=== PATIENT | male | born 1970 | race Caucasian/White ===

== ENCOUNTER 2023-07-14 18:45 | Emergency (ER) | payer OTHER, SELFPAY ==
--- NOTE | ~2023-07-14 | US_ITS ---
EXAMINATION: US SCROTUM CLINICAL INFORMATION: Testicular pain and swelling. COMPARISON: None available. TECHNIQUE: A sonogram of the scrotum was performed assessing liang-scale appearance and color Doppler flow. Spectral Doppler analysis of the arterial and venous flow were performed in the testes bilaterally. FINDINGS: RIGHT: Right testicle measures 4.9 x 3.1 x 3.8 cm, volume 30.2 mL. No focal testicular parenchymal lesions are visualized. Spectral Doppler analysis of the arterial and venous flow is normal flow in the right testis. Right epididymal head is mildly enlarged and demonstrates increased vascularity. There is a small to moderate-sized septated right hydrocele. No right varicocele. LEFT: Left testicle measures 5.4 x 2.8 x 3.2 cm, volume 25 mL. No focal testicular parenchymal lesions are visualized. Spectral Doppler analysis of the arterial and venous flow is normal in the left testis. Left epididymal head is normal in size. No left hydrocele or varicocele is seen. Left epididymal Doppler flow is normal. US/US scrotum doppler IMPRESSION: The right epididymis appears mildly enlarged and is hyperemic compared with the left side. There is a small to moderate-sized septated right hydrocele. Findings likely represent right-sided epididymitis with reactive hydrocele. Findings were conveyed to Dr. Hand at 8:00 PM on 07/14/2023.
--- NOTE | ~2023-07-14 | US_ITS ---
EXAMINATION: US SCROTUM CLINICAL INFORMATION: Testicular pain and swelling. COMPARISON: None available. TECHNIQUE: A sonogram of the scrotum was performed assessing liang-scale appearance and color Doppler flow. Spectral Doppler analysis of the arterial and venous flow were performed in the testes bilaterally. FINDINGS: RIGHT: Right testicle measures 4.9 x 3.1 x 3.8 cm, volume 30.2 mL. No focal testicular parenchymal lesions are visualized. Spectral Doppler analysis of the arterial and venous flow is normal flow in the right testis. Right epididymal head is mildly enlarged and demonstrates increased vascularity. There is a small to moderate-sized septated right hydrocele. No right varicocele. LEFT: Left testicle measures 5.4 x 2.8 x 3.2 cm, volume 25 mL. No focal testicular parenchymal lesions are visualized. Spectral Doppler analysis of the arterial and venous flow is normal in the left testis. Left epididymal head is normal in size. No left hydrocele or varicocele is seen. Left epididymal Doppler flow is normal. US/US scrotum IMPRESSION: The right epididymis appears mildly enlarged and is hyperemic compared with the left side. There is a small to moderate-sized septated right hydrocele. Findings likely represent right-sided epididymitis with reactive hydrocele. Findings were conveyed to Dr. Hand at 8:00 PM on 07/14/2023.
[2023-07-14 18:53] VITALS: BP 104/60; PULSE 84; RESP 16; TEMP 36.5; O2SAT 94; BMI 30.1
--- NOTE | 2023-07-14 18:53 | ED.GENADULT ---
HPI - General Adult General Chief complaint: Urogenital-Male Stated complaint: male issue Time Seen by Provider: 07/14/23 23:21 Related Data Previous Rx's Medication Instructions Recorded doxycycline hyclate 100 mg capsule 100 mg PO BID cough 14 days #28 07/14/23 caps Allergies Allergy/AdvReac Type Severity Reaction Status Date / Time No Known Allergies Allergy Unverified 03/23/20 19:45 [No Known Allergies*] [facility] Social History Social History Advance Directives: No Advance Directives Information Provided: No Physical Exam ED Vital Signs: Vital Signs - 24 hr 07/14/23 18:53 07/14/23 23:23 07/14/23 23:45 Temperature 97.7 F 98.2 F Pulse Rate 84 86 Respiratory Rate 16 16 16 Blood Pressure 104/60 112/64 Pulse Oximetry 94 95 Oxygen Delivery Method Room Air Room Air BMI result Body Mass Index 30.1 Course Course Course Narrative: RME performed by Rin Hand PA-C. Patient is a 52 year old assigned male at presenting to the emergency department with lower abdominal pain and testicular pain. Patient also recently diagnosed with pneumonia? Detailed physical exam and review of systems are deferred to the director of consumer affairs. Labs, imaging, and swabs ordered. Patient placed back in the waiting room pending room availability and results. Patient seen and dispositioned by Dr. Barbosa. Please refer to his note from this date. Medications Administered Discontinued Medications Generic Name Dose Route Start Last Admin Trade Name Freq PRN Reason Stop Dose Admin Ceftriaxone Sodium 500 mg 07/14/23 23:39 07/15/23 00:22 Ceftriaxone Sodium 500 Mg Vial IM 07/14/23 23:40 500 mg ONCE ONE Administration Doxycycline Monohydrate 100 mg 07/14/23 23:37 07/15/23 00:22 Doxycycline Monohydrate 100 Mg Capsule PO 07/14/23 23:38 100 mg ONCE ONE Administration Medical Decision Making Lab Data 07/14/23 19:57 07/14/23 19:57 Labs: Lab Results 07/14/23 07/15/23 Range/Units 19:57 00:11 WBC 9.4 (4.8-10.8) X10*3/uL RBC 4.08 L (4.60-5.80) X10*6/uL Hgb 12.6 L (14.0-18.0) g/dl Hct 35.7 L (42.0-52.0) % MCV 87.5 (80.0-98.0) fL MCH 30.9 (27.0-33.0) pg MCHC 35.3 (31.0-36.0) g/dl RDW 12.6 (11.0-16.0) % Plt Count 131 L (160-400) X10*3/uL MPV 12.3 (9.4-12.4) fL Immature Gran % (Auto) 0.2 (0.0-0.4) % Neut % (Auto) 66.8 (45-73) % Lymph % (Auto) 22.9 (20-40) % [place] % (Auto) 7.8 (2-11) % Eos % (Auto) 1.8 (0-4) % Baso % (Auto) 0.5 (0-2) % Lymph # (Auto) 2.2 (1.2-4.9) X10*3/uL [place] # (Auto) 0.7 (0.1-1.2) X10*3/uL Eos # (Auto) 0.2 (0.0-0.4) X10*3/uL Baso # (Auto) 0.1 (0.0-0.2) X10*3/uL Abs Immat Gran (auto) 0.02 (0.00-0.03) X10*3/uL Absolute Neuts (auto) 6.3 (2.0-8.3) x10*3/uL Absolute Nucleated RBC 0.000 (0.0-0.012) X10*3/uL Nucleated RBC % (auto) 0.0 (0.0-0.2) /100WBC Sodium 133 L (135-145) mmol/L Potassium 3.5 (3.3-5.1) mmol/L Chloride 103 (96-108) mmol/L Carbon Dioxide 22 (22-29) mmol/L Anion Gap 12 (12-20) BUN 8 L (9-16) mg/dL Creatinine 0.99 (0.5-1.4) mg/dL Estim Creat Clear Calc 107.7 Estimated GFR > 60 Random Glucose 114 (60-115) mg/dL Calcium 9.0 (8.4-10.2) mg/dL Magnesium 1.9 (1.6-2.6) mg/dL Total Bilirubin 1.4 H (0.0-1.0) mg/dL AST 11 (5-37) U/L ALT 10 (0-40) U/L Alkaline Phosphatase 119 H (39-117) U/L Total Protein 7.0 (6.5-8.0) g/dL Albumin 4.1 (3.5-5.0) g/dL Urine Color Yellow Urine Appearance Turbid Urine pH 5.5 (5.0-9.0) Ur Specific [place] 1.015 (1.005-1.025) Urine Protein 100 (2+) H (Neg-Trace) mg/dL Urine Glucose (UA) Negative (Negative) mg/dL Urine Ketones Negative (Negative) mg/dL Urine Blood Large (3+) H (Negative) Urine Nitrite Negative (Negative) Ur Leukocyte Esterase Large (3+) H (Negative) Urine RBC >20 H (0-2) /HPF Urine WBC >50 H (0-5) /HPF Ur Squamous Epith Cells 0-2 (0-2) /HPF Urine Bacteria 3+ (None Seen) Hyaline Casts 3-5 (0-2) /LPF Chlam trachomat DNA PCR NOT DETECTED (Not Detect.) Influenza Type A (PCR) NEGATIVE (Negative) Influenza Type B (PCR) NEGATIVE (Negative) N.gonorrhoeae DNA (PCR) NOT DETECTED (Not Detect.) RSV RNA Qual (PCR) NEGATIVE (Negative) SARS-CoV-2 RNA (RT-PCR) NEGATIVE (Negative) Discharge Plan Discharge Clinical Impression: Epididymitis Patient Disposition: Home, Self-Care Instructions: Epididymitis (ED) Prescriptions: New doxycycline hyclate 100 mg capsule 100 mg PO BID 14 Days Qty: 28 0RF Referrals: Trenton Huff MD [Physician] - 07/16/23 Interventions: ED Discharge Assessment Last Done: 07/15/23 00:24 Discharge Date/Time: 07/15/23 00:25
--- NOTE | 2023-07-14 19:33 | MHC.EDTECH ---
Patient was called at 1930,to draw labs, patient is in ultrasound at this time.
--- NOTE | 2023-07-14 19:58 | MHC.EDTECH ---
Patient brought into triage area, labs,sars/flu/rsv,and a urine obtained and sent to lab. Patient bladder scanned post void was 9MLS,GABY Gar made aware.Patient brought back to waiting room.
[2023-07-14 20:08] LABS: MANUAL DIFF FLAG NO
--- OUTSIDE RECORDS SUMMARY | 2023-07-14 20:09 | XMS_ITS | Continuity of Care Document ---
Author Name Unknown Organization [facility] Address [address] [address]- Care Team Providers Care Private Investigator Name Role Phone Sara Mercado MD Primary Care Physician Encounter [facility] [place] Date(s): 09/23/22 - 10/23/22 [facility] [address] [place] [id number] Attending Physician: Ronnie Garcia Admitting Physician: AdmtrRonnie Referring Physician: Admtr, Ar8 Allergies, Adverse Reactions, Alerts No Known Allergies Immunizations Given and Recorded Vaccine Date Status Refusal Reason SARS-CoV-2 (COVID-19) mRNA BNT-162b2 vac 04/06/21 Recorded SARS-CoV-2 (COVID-19) mRNA BNT-162b2 vac 02/25/21 Recorded pneumococcal 23-valent vaccine 03/22/21 Recorded influenza virus vaccine, inactivated 03/20/21 Dwaine rded influenza virus vaccine, inactivated 04/20/20 Dwaine rded zoster vaccine, inactivated 06/20/20 Recorded Hepatitis A Adult Vaccine 01/20/19 Recorded Medications Advair Diskus 100 mcg-50 mcg inhalation powder 1, inhalation, Inhalation, 2 times a day, rinse mouth and throat after use, Refills 0, Maintenance,09/23/22 14:19:00 EDT, Powder Start Date: 09/23/22 Status: Ordered aspirin 81 mg oral capsule 1 capsule = 81 mg, By Mouth, Daily, 0 Refills, Maintenance, 08/15/21 1:42:00 EST, Partial fill uponpatient request if the prescription is for a schedule II opioid drug. Start Date: 08/15/21 Status: Ordered atorvastatin 80 mg oral tablet 1 tablet = 80 mg, By Mouth, Daily, # 90 tablet, 0 Refills, Maintenance, 08/15/21 1:40:00 EST, Tablet, Partial fill upon patient request if the prescription is for a schedule II opioid drug. Start Date: 08/15/21 Status: Ordered Colace sodium 100 mg oral capsule 100 mg, 1, capsule, By Mouth, 2 times a day, PRN, # 20 capsule, Refills 0, Maintenance, for constipation, 08/15/21 1:45:00 EST, Partial fill upon patient request if the prescription is for a scheduleII opioid drug. Start Date: 08/15/21 Status: Ordered dicyclomine 10 mg oral capsule 1 capsule = 10 mg, By Mouth, 4 times a day, May use up to 4 times a day as needed for abdominal pain cramping diarrhea attempt to use sparingly, # 120 capsule, 1 Refills, Maintenance, 10/21/22 12:34:00 EDT, [facility]/pharmacy #[id number], Partial fill upon patien... Start Date: 10/21/22 Stop Date: 12/20/22 Status: Ordered gabapentin 300 mg oral capsule 3 CAPSULES, By Mouth, 3 times a day, # 270 capsule, Refills 0, Maintenance, 08/15/21 1:41:00 EST, Partial fill upon patient request if the prescription is for a schedule II opioid drug. Start Date: 08/15/21 Status: Ordered pantoprazole 20 mg oral delayed release tablet 1 tablet = 20 mg, By Mouth, Daily, # 30 tablet, 0 Refills, Maintenance, 09/23/22 14:19:00 EDT, CR Tablet Start Date: 09/23/22 Status: Ordered Questran 4 gm/9 gm oral powder for reconstitution 1 pack/packet, By Mouth, 3 times a day, # 90 each, 2 Refills, Maintenance, 10/21/22 12:34:00 EDT, REC Powder, [facility]/pharmacy #[id number], Partial fill upon patient request if the prescription is for a schedule II opioid drug., 186, cm, 10/21/22 11:37:00 EDT,... Start Date: 10/21/22 Status: Ordered QUEtiapine 25 mg oral tablet 50 mg, 2, tablet, By Mouth, 2 times a day, # 120 tablet, Refills 0, Maintenance, 09/23/22 14:20:00 EDT, Partial fill upon patient request if the prescription is for a schedule II opioid drug. Start Date: 09/23/22 Status: Ordered QUEtiapine 25 mg oral tablet 50 mg, 2, tablet, By Mouth, 2 times a day, # 120 tablet, Refills 0, Maintenance, 09/23/22 14:20:00 EDT, Partial fill upon patient request if the prescription is for a schedule II opioid drug. Start Date: 09/23/22 Status: Ordered ricardo kunz lyo 250 mg oral capsule 1 capsule = 250 mg, By Mouth, 2 times a day, for 60 days, # 120 capsule, 1 Refills, Acute 02/18/23 12:35:00 EDT, 10/21/22 12:35:00 EDT, [facility]/pharmacy #[id number], Partial fill upon patient request if the prescription is for a schedule II opioid drug., 186, c... Start Date: 10/21/22 Stop Date: 02/18/23 Status: Ordered Senna 8.6 mg oral tablet 8.6 mg, 1, tablet, By Mouth, 2 times a day, Refills 0, Maintenance, 08/15/21 1:45:00 EST, Partial fill upon patient request if the prescription is for a schedule II opioid drug. Start Date: 08/15/21 Status: Ordered sertraline 150 mg oral capsule 1 capsule = 150 mg, By Mouth, Daily, 0 Refills, Maintenance, 08/15/21 1:42:00 EST, Partial fill upon patient request if the prescription is for a schedule II opioid drug. Start Date: 08/15/21 Status: Ordered traZODone 150 mg oral tablet 1 tablet = 150 mg, By Mouth, Daily at bedtime, # 30 tablet, 0 Refills, Maintenance, 08/15/21 1:44:00 EST, Tablet, Partial fill upon patient request if the prescription is for a schedule II opioid drug. Start Date: 08/15/21 Status: Ordered Problem List Condition Confirmation Course Effective Dates Status H ealth Status Informant Ataxia S/P CVA Confirmed Active CAD (coronary artery disease) Confirmed Active Cryptogenic stroke Confirmed 09/[address] scan, chest Confirmed Active Dyspnea Confirmed Active Hyperlipidemia Confirmed Active Hypertension Confirmed Active MARY on CPAP Confirmed Active Paroxysmal A-fib Confirmed Active Social History Social History Type Response Smoking Status Former smoker, quit more than 30 days ago;Never; Type: Cigarettes; Tobacco use times per day: smoked daily but not a pack per day;; Started at age: 20; Stopped at age: 28; entered on: 09/23/22 Sex Patient Care team information Care Team Personnel Name: Rogelio HILL , Sara Vazquez Position: Reference Physician Member Role: PCP Address: Address: [address] [place] [address]- Care Team Related Persons Name: DENA WILSON Address: [place] [address] Name: DEV NEVAREZ Address: [place] [address]
--- OUTSIDE RECORDS SUMMARY | 2023-07-14 20:09 | XMS_ITS | Continuity of Care Document ---
Author Name Unknown Organization [facility] Address [address] [place] [address]- Care Team Providers Care School Transportation Director Name Role Phone Not on Staff, PCP Primary Care Physician Unavail able [place] [facility] [place] - 07/21/22 [facility] [address] [place] [address]- [place] Allergies, Adverse Reactions, Alerts No Known Allergies Immunizations Given and Recorded Vaccine Date Status Refusal Reason SARS-CoV-2 (COVID-19) mRNA BNT-162b2 vac 04/06/21 Recorded SARS-CoV-2 (COVID-19) mRNA BNT-162b2 vac 02/25/21 Recorded pneumococcal 23-valent vaccine 03/22/21 Recorded influenza virus vaccine, inactivated 03/20/21 Dwaine rded influenza virus vaccine, inactivated 04/20/20 Dwaine rded zoster vaccine, inactivated 06/20/20 Recorded Hepatitis A Adult Vaccine 01/20/19 Recorded Medications aspirin 81 mg oral capsule 1 capsule [...] opioid drug. Start Date: 08/15/21 Status: Ordered gabapentin 300 mg oral capsule 3 CAPSULES, By Mouth, 3 times a day, # 270 capsule, Refills 0, Maintenance, 08/15/21 1:41:00 EST, Partial fill upon patient request if the prescription is for a schedule II opioid drug. Start Date: 08/15/21 Status: Ordered Senna 8.6 mg oral tablet [...] opioid drug. Start Date: 08/15/21 Status: Ordered Social History Social History Type Response Smoking Status Former smoker, quit more than 30 days ago entered on: 06/21/19 Sex Patient Care team information Care Team Personnel Name: Not on Staff, PCP Position: [facility] Physician (General Medicine) Member Role: PCP Care Team Related Persons Name: DENA WILSON Address: [place] [address] Name: DEV NEVAREZ Address: [place] [address]
--- OUTSIDE RECORDS SUMMARY | 2023-07-14 20:09 | XMS_ITS | Continuity of Care Document ---
Author Name Unknown Organization [facility] Address [address] [place] [id number]- Care Team Providers Care Veterans Service Representative Name Role Phone Not on Staff, PCP Primary Care Physician Unavail able Encounter [facility] [place] Date(s): 08/11/21 - 08/12/[address] [address]- Discharge Disposition: A-D/C Walkout Attending Physician: Not on Staff, Attending MD Admitting Physician: Not on Staff, Admitting MD Referring Physician: Not on Staff, Referring MD Allergies, Adverse Reactions, Alerts No Known Allergies Results Radiology Reports * Exam Date Time Procedure Performing Provider Status 08/11/21 11:35 PM Chest Portable Jacque Rader; Auth ( Verified) Notes: (Chest Portable) Reason For Exam: Chest Pain;Other: RESULT: Chest Portable Chest Portable HX OF PRESENT ILLNESS: SOB and chest pain; Reason: Chest Pain COMPARISON: 11/05/2017 FINDINGS: LINES AND TUBES: None. LUNGS AND PLEURA: Clear lungs. Normal pulmonary vascularity. No pleural effusion. No pneumothorax. HEART, MEDIASTINUM AND ANGEL: Heart is normal in size. Normal mediastinal and hilar contour. BONES AND SOFT TISSUES: No acute abnormality. IMPRESSION: No evidence of acute abnormality. WSN: [id number] Ordering Physician: Roby Menon Dictated By: Paulo Groves MD Dictated Date/Time: 08/11/21 11:38 p Reviewed By: Paulo Groves MD Signed By: Paulo Groves MD Signed Date/Time: 08/11/21 11:38 pm Transcribed By: NASREEN Transcribed Date/Time: 08/11/21 11:38 pm Vital Signs Most recent to oldest [Reference Range]: 1 2 3 Oxygen Saturation [94-100 %] 96 % (08/12/21 4:08 AM) 98 % (08/12/21 2:10 AM) 97 % (08/12/21 12:07 AM) Pulse Rate [55-90 bpm] 84 bpm (08/12/21 4:08 AM) 86 bpm (08/12/21 2:10 AM) 89 bpm (08/12/21 12:07 AM) Blood Pressure [90-138/55-84 mm Hg] 129/66mm Hg (08/12/21 4:08 AM) 114/69mm Hg (08/12/21 2:10 AM) 125/79mm Hg (08/12/21 12:07 AM) Respiratory Rate [16-30 br/min] 16 br/min (08/12/21 4:08 AM) 16 br/min (08/12/21 12:07 AM) 20 br/min (08/11/21 10:05 PM) Temperature [96.8-100.4 DegF] 99.5 DegF (08/12/21 4:08 AM) 99.2 DegF (08/12/21 2:10 AM) 99.2 DegF (08/12/21 12:07 AM) Mode of Delivery (Oxygen) Room air (08/12/21 4:08 AM) Room air (08/12/21 2:10 AM) Room air (08/12/21 12:07 AM) Blood pressure sites Arm, right (08/12/21 4:08 AM) Arm, right (08/12/21 2:10 AM) Arm, left (08/12/21 12:07 AM) Temperature Route Oral (08/12/21 4:08 AM) Oral (08/12/21 2:10 AM) Oral (08/12/21 12:07 AM) Social History Social History Type Response Smoking Status Former smoker, quit more than 30 days ago entered on: 06/21/19 Sex
--- OUTSIDE RECORDS SUMMARY | 2023-07-14 20:09 | XMS_ITS | Continuity of Care Document ---
Author Name Unknown Organization [facility] Address [address] [place] [id number]- Care Team Providers Care Signaling Project Engineer Name Role Phone Sara Mercado MD Primary Care Physician Encounter [facility] [place] Date(s): 11/13/22 - 02/08/23 [facility] [address] [place] [id number] Attending Physician: Sudhakar Krause MD Admitting Physician: Sudhakar Krause MD Referring Physician: Sara Mercado MD Allergies, Adverse Reactions, Alerts No Known [...] capsule, 1 Refills, Maintenance, 10/21/22 12:34:00 EDT, [facility]/pharmacy #[id number], Partial fill upon patien... Start Date: [...] Acute 02/18/23 12:35:00 EDT, 10/21/22 12:35:00 EDT, [facility]/pharmacy #[id number], Partial fill upon patient request if [...] Care team information Care Team Personnel Name: Sara Mercado MD Position: Reference Physician Member Role: PCP Address: Address: [address] [place] [address]- Care Team Related Persons Name: DENA WILSON Address: [place] [address] Name: DEV NEVAREZ Address: [place] [address]
--- OUTSIDE RECORDS SUMMARY | 2023-07-14 20:09 | XMS_ITS | Continuity of Care Document ---
Author Name Unknown Organization [facility] Address [address] [place] [address]- Care Team Providers Care Mold Closer Helper Name Role Phone Not on Staff, PCP Primary Care Physician Unavail able [place] [facility] [place]/22 [facility] [address] [place] [address]- [place] Allergies, Adverse Reactions, Alerts No Known [...] Personnel Name: Not on Staff, PCP Position: [facility] Physician (General Medicine) Member Role: PCP Care Team Related Persons Name: DENA WILSON Address: [place] [address] Name: DEV NEVAREZ Address: [place] [address]
[2023-07-14 20:10] LABS: Basophils Absolute Auto 0.1 X10*3/uL (0.0-0.2); Basophils Percent Auto 0.5 % (0-2); Eosinophils Absolute Auto 0.2 X10*3/uL (0.0-0.4); Eosinophils Percent Auto 1.8 % (0-4); Hematocrit 35.7 % (42.0-52.0); Hemoglobin 12.6 g/dl (14.0-18.0); Imm Gran Abs Auto 0.02 X10*3/uL (0.00-0.03); Imm Gran Pct Auto 0.2 % (0.0-0.4); Lymphocytes Absolute Auto 2.2 X10*3/uL (1.2-4.9); Lymphocytes Percent Auto 22.9 % (20-40); Mean Corpuscular HGB Conc 35.3 g/dl (31.0-36.0); Mean Corpuscular Hemoglobin 30.9 pg (27.0-33.0); Mean Corpuscular Volume 87.5 fL (80.0-98.0); Mean Platelet Volume 12.3 fL (9.4-12.4); Monocytes Absolute Auto 0.7 X10*3/uL (0.1-1.2); Monocytes Percent Auto 7.8 % (2-11); Neutrophils Absolute Auto 6.3 x10*3/uL (2.0-8.3); Neutrophils Percent Auto 66.8 % (45-73); Platelet Count 131 X10*3/uL (160-400); Red Blood Count 4.08 X10*6/uL (4.60-5.80); Red Cell Distribution Width 12.6 % (11.0-16.0); White Blood Count 9.4 X10*3/uL (4.8-10.8)
[2023-07-14 20:12] LABS: Appearance Urine Turbid; Color Urine Yellow; Glucose Urine UA Negative (Negative); Leukocyte Esterase Urine Large (3+) (Negative); Nitrite Urine Negative (Negative); PH 5.5 (5.0-9.0); Specific Gravity - Urine 1.015 (1.005-1.025); UMIC TRIGGER UACC YES; Urine Blood Large (3+) (Negative); Urine Ketones Negative (Negative); Urine Protein 100 (2+) mg/dL (Neg-Trace)
[2023-07-14 20:14] LABS: Bacteria Urine 3+ (None Seen); RBC Urine >20 /HPF (0-2); Squamous Epithelial Cell Urine 0-2 /HPF (0-2); UACC Culture Trigger YES; WBC Urine >50 /HPF (0-5)
[2023-07-14 20:27] LABS: Alanine Aminotransferase 10 U/L (0-40); Albumin Level 4.1 g/dL (3.5-5.0); Alkaline Phosphatase 119 U/L (39-117); Anion Gap 12 (12-20); Aspartate Amino Transferase 11 U/L (5-37); Bilirubin Total 1.4 mg/dL (0.0-1.0); Blood Urea Nitrogen 8 mg/dL (9-16); Carbon Dioxide 22 mmol/L (22-29); Chloride 103 mmol/L (96-108); Creatinine Clr Calc Pharmacy 107.7; Estimated Glomerular Filt Rate > 60; Glucose Random 114 mg/dL (60-115); Magnesium 1.9 mg/dL (1.6-2.6); Potassium 3.5 mmol/L (3.3-5.1); Sodium 133 mmol/L (135-145)
[2023-07-14 20:47] LABS: Influenza A PCR NEGATIVE (Negative); Influenza B PCR NEGATIVE (Negative); Resp Syncy Virus RNA Qual PCR NEGATIVE (Negative); SARS COV2 PCR INHOUSE NEGATIVE (Negative)
[2023-07-14 23:23] VITALS: RESP 16
--- NOTE | 2023-07-14 23:35 | ED.MALEGU ---
HPI - Male Genitourinary General Chief complaint: Urogenital-Male Stated complaint: male issue Time Seen by Provider: 07/14/23 23:21 History of Present Illness HPI Narrative: Patient is a 52-year-old male presents today with having testicular pain. Testicular swelling for 1 day. Positive generalized malaise. Patient is sexually active. No condom. No fever no chills no systemic complaints. No history of STDs in the past. Related Data Previous Rx's Medication Instructions Recorded doxycycline hyclate 100 mg capsule 100 mg PO BID cough 14 days #28 07/14/23 caps Allergies Allergy/AdvReac Type Severity Reaction Status Date / Time No Known Allergies Allergy Unverified 03/23/20 19:45 [No Known Allergies*] Review of Systems Review of Systems: Positive swelling to the testicle Yes all other systems are reviewed and are negative [facility] Past Medical History Attestation statement: The following information was validated with the patient. Onset Date is defined in the Problem List Problems that require an onset date and time if occurred within 24 hrs of arrival to the ED Aortic Dissection and Rupture; Neurologic impairment; Cardiopulmonary Arrest; Endotracheal Intubation; Insertion or Replacement of Mechanical Circulatory Assist Device Social History Social History Advance Directives: No Advance Directives Information Provided: No Physical Exam Vital Signs: Vital Signs: Last Vital Signs Temp 97.7 F 07/14/23 18:53 Pulse 84 07/14/23 18:53 Resp 16 07/14/23 23:23 BP 104/60 07/14/23 18:53 Pulse Ox 94 07/14/23 18:53 O2 Del Method Room Air 07/14/23 18:53 BMI result Body Mass Index 30.1 Appearance: Alert. Oriented X3. No acute distress. Eyes: Pupils equal, round and reactive to light. ENT: Pharynx normal. Neck: Normal inspection. Neck supple. No lymph nodes noted. No crepitus CVS: Normal heart rate and rhythm. Pulses normal. Normal S1 and S2 Respiratory: No respiratory distress. Breath sounds normal. No Wheezing. No rales Abdomen: Soft and nontender. No rigidity. No distention. good BS x4 Skin: Skin warm and dry. Normal skin color. Normal skin turgor. and large right testicle tender to touch. Extremities: No lower extremity edema. Neurovascular intact to all extremities. No Lacerations. No Rash Neuro: Oriented X 3. No motor deficit. No sensory deficit. Moving all extermities. No slurred speech Medical Decision Making Medical Decision Making [facility] Narrative: Patient's ultrasound showed no evidence of torsion. There is evidence for epididymitis and hydrocele. Patient is sexually active. Will start patient on Rocephin and doxycycline. Have patient follow-up on an outpatient basis. Currently in stable condition. Patient's electrolytes are normal. Urine shows signs of infection. Patient follow-up with urology on an outpatient basis. Patient's flu RSV and COVID are negative. Differential Diagnosis Differential Diagnoses: The differential diagnosis associated with the presentation includes Flu COVID RSV, epididymitis, torsion Lab Data [facility] Lab Attestation statement: I reviewed the patient's lab results. 07/14/23 19:57 07/14/23 19:57 Labs: Lab Results 07/14/23 Range/Units 19:57 WBC 9.4 (4.8-10.8) X10*3/uL RBC 4.08 L (4.60-5.80) X10*6/uL Hgb 12.6 L (14.0-18.0) g/dl Hct 35.7 L (42.0-52.0) % MCV 87.5 (80.0-98.0) fL MCH 30.9 (27.0-33.0) pg MCHC 35.3 (31.0-36.0) g/dl RDW 12.6 (11.0-16.0) % Plt Count 131 L (160-400) X10*3/uL MPV 12.3 (9.4-12.4) fL Immature Gran % (Auto) 0.2 (0.0-0.4) % Neut % (Auto) 66.8 (45-73) % Lymph % (Auto) 22.9 (20-40) % [place] % (Auto) 7.8 (2-11) % Eos % (Auto) 1.8 (0-4) % Baso % (Auto) 0.5 (0-2) % Lymph # (Auto) 2.2 (1.2-4.9) X10*3/uL [place] # (Auto) 0.7 (0.1-1.2) X10*3/uL Eos # (Auto) 0.2 (0.0-0.4) X10*3/uL Baso # (Auto) 0.1 (0.0-0.2) X10*3/uL Abs Immat Gran (auto) 0.02 (0.00-0.03) X10*3/uL Absolute Neuts (auto) 6.3 (2.0-8.3) x10*3/uL Absolute Nucleated RBC 0.000 (0.0-0.012) X10*3/uL Nucleated RBC % (auto) 0.0 (0.0-0.2) /100WBC Sodium 133 L (135-145) mmol/L Potassium 3.5 (3.3-5.1) mmol/L Chloride 103 (96-108) mmol/L Carbon Dioxide 22 (22-29) mmol/L Anion Gap 12 (12-20) BUN 8 L (9-16) mg/dL Creatinine 0.99 (0.5-1.4) mg/dL Estim Creat Clear Calc 107.7 Estimated GFR > 60 Random Glucose 114 (60-115) mg/dL Calcium 9.0 (8.4-10.2) mg/dL Magnesium 1.9 (1.6-2.6) mg/dL Total Bilirubin 1.4 H (0.0-1.0) mg/dL AST 11 (5-37) U/L ALT 10 (0-40) U/L Alkaline Phosphatase 119 H (39-117) U/L Total Protein 7.0 (6.5-8.0) g/dL Albumin 4.1 (3.5-5.0) g/dL Urine Color Yellow Urine Appearance Turbid Urine pH 5.5 (5.0-9.0) Ur Specific [place] 1.015 (1.005-1.025) Urine Protein 100 (2+) H (Neg-Trace) mg/dL Urine Glucose (UA) Negative (Negative) mg/dL Urine Ketones Negative (Negative) mg/dL Urine Blood Large (3+) H (Negative) Urine Nitrite Negative (Negative) Ur Leukocyte Esterase Large (3+) H (Negative) Urine RBC >20 H (0-2) /HPF Urine WBC >50 H (0-5) /HPF Ur Squamous Epith Cells 0-2 (0-2) /HPF Urine Bacteria 3+ (None Seen) Hyaline Casts 3-5 (0-2) /LPF Influenza Type A (PCR) NEGATIVE (Negative) Influenza Type B (PCR) NEGATIVE (Negative) RSV RNA Qual (PCR) NEGATIVE (Negative) SARS-CoV-2 RNA (RT-PCR) NEGATIVE (Negative) Radiology Impression Discussion of test interpretation with radiology: I have reviewed the radiologist's reading. Prescription Management I considered prescription management with: Pain Medication Antibiotic was given because patient had epididymitis Discharge Plan Discharge Clinical Impression: Epididymitis Patient Disposition: Home, Self-Care Instructions: Epididymitis (ED) Prescriptions: New doxycycline hyclate 100 mg capsule 100 mg PO BID 14 Days Qty: 28 0RF Referrals: Trenton Huff MD [Physician] - 07/16/23
[2023-07-14 23:45] VITALS: BP 112/64; PULSE 86; RESP 16; TEMP 36.8; O2SAT 95
[2023-07-15] MEDS: cefTRIAXone sodium 500 MG VIAL IM (00:22)
[2023-07-15] MEDS: Doxycycline Monohydrate 100 MG CAPSULE PO (00:22)
[2023-07-15 01:44] LABS: CT PCR NOT DETECTED (Not Detect.); NG PCR NOT DETECTED (Not Detect.)
== END 2023-07-15 00:25 | disposition home or self-care (01) ==
PROVIDERS: Physician Assistant Medical; Emergency Provider Emergency Medicine Emergency Medical Services
DX: N45.1 Epididymitis (principal); N50.812 Left testicular pain; N50.811 Right testicular pain; R10.2 Pelvic and perineal pain; Z20.822 Contact with and (suspected) exposure to COVID-19; Z20.828 Contact with and (suspected) exposure to other viral communicable diseases; Z79.899 Other long term (current) drug therapy
CPT/HCPCS: 0241U; 0353U; 51798; 76870; 80053; 81001; 83735; 85025; 87086; 93975; 96372; 99284; J0696

== ENCOUNTER 2023-11-15 15:13 | Emergency (ER) | payer OTHER, SELFPAY ==
--- NOTE | ~2023-11-15 | US_ITS ---
EXAMINATION: US VENOUS ULTRASOUND WITH DOPPLER LOWER EXTREMITY, LEFT CLINICAL INFORMATION: Left posterior leg pain, swelling COMPARISON: None available. TECHNIQUE: Ultrasound of the deep veins is performed from the hip to the calf with compression sonography and color and pulse Doppler assessment. Spectral analysis with color-flow imaging is performed. FINDINGS: There is normal venous compression and respiratory variation and augmented flow. The visualized common femoral vein, superficial femoral vein, profunda femoral vein, popliteal vein, and the trifurcation region shows no evidence of deep venous thrombosis. There is no significant popliteal fossa cyst. If the patient's symptoms persist, followup ultrasound in 5 days 7 days might be of value to exclude proximal propagation from a non-visualized calf vein. US/US venous duplex LE IMPRESSION: No deep vein thrombosis identified in the left lower extremity.
[2023-11-15 16:24] VITALS: BP 143/85; PULSE 72; RESP 16; TEMP 36.7; O2SAT 95; BMI 29.1
--- NOTE | 2023-11-15 16:25 | ED.EXTPRO ---
HPI - Extremity Problem General Chief complaint: Extremity Injury, Lower Stated complaint: left knee pain and swelling Time Seen by Provider: 11/15/23 17:50 Source: patient Mode of arrival: ambulatory Limitations: no limitations History of Present Illness HPI Narrative: 53-year-old male with no significant past medical history presents emergency department with complaints of left knee and calf pain for the last 5 days. He reports he feels as if his knee and lower leg are swollen and the pain is radiating from the calf to anterior knee. He reports pain is exacerbated by bending believes that ?all veins popped out? earlier today. He denies any paresthesias or weakness in the leg Pertinent positives and negatives discussed in the HPI Related Data Previous Rx's ?Medication ?Instructions ?Recorded doxycycline hyclate 100 mg capsule 100 mg PO BID cough 14 days #28 07/14/23 caps Allergies Allergy/AdvReac Type Severity Reaction Status Date / Time No Known Allergies Allergy Verified 11/15/23 16:24 [No Known Allergies*] Review of Systems Review of Systems: Yes all other systems are reviewed and are negative [facility] Social History Social History Advance Directives: No Advance Directives Information Provided: No Do you have a plan to hurt others: No Plan Physical Exam Vital Signs: Vital Signs: Last Vital Signs Temp 98 F 11/15/23 19:25 Pulse 78 11/15/23 19:25 Resp 20 11/15/23 19:25 BP 144/88 H 11/15/23 19:25 Pulse Ox 97 11/15/23 19:25 O2 Del Method Room Air 11/15/23 19:25 BMI result Body Mass Index 29.1 Nursing notes and vital signs reviewed. GENERAL APPEARANCE: A&0 x 4, generally well appearing, no acute distress HENMT: Normal to inspection, atraumatic, face symmetrical. Normal external ears, nose, and oropharynx clear. EYE: PERRLA, EOM intact, structures appear normal NECK: Supple without stiffness or restricted ROM. HEART: Normal rate and regular rhythm, normal S1/S2, no M/R/G LUNGS: LS CTA, moving air well. Able to speak in complete sentences. No crackles, wheezes, or rhonchi auscultated BACK: No CVAT, no obvious deformity EXTREMITIES: Moving all extremities equally. TTP anterior knee and calf. Normal capillary refill. NEUROLOGICAL: Alert and oriented, moving all 4 extremities with equal strength. CN not formally tested but appearing grossly intact. Observed to ambulate with normal gait. Cognition normal SKIN: Warm and dry without any lesions, rash, or visible sores Medical Decision Making Medical Decision Making MDM Narrative: Old records reviewed for previous imaging, lab studies, ECGs, and notes. Patient was assessed the emergency department with no acute distress or toxicity noted. Ultrasound LLE completed showing no evidence of DVT, per my interpretation. Patient educated to rest, ice, compress, elevate leg for comfort with an Navneet wrap provided. I offered to apply the Navneet wrap and patient declined. Patient is safe for discharge at this time with plan for [id number] Tylenol and/or NSAID such as ibuprofen or naproxen for fever/discomfort with dosing as per packaging. HPI, PE, diagnostics, and plan discussed with patient and family with no unanswered questions at this time. Strict return precautions given to return to the emergency department with new, worsening, or concerning emergent symptoms. Recommended to follow-up with there primary care provider in 24-48 hours for further treatment and management. Differential Diagnosis Differential Diagnoses: The differential diagnosis associated with the presentation includes But not limited to strain, sprain, DVT, cellulitis, contusion, fracture, dislocation Independent Interpretation I performed an independent interpretation of an: Ultrasound Discharge Plan Discharge Clinical Impression: Knee pain, left Patient Disposition: Home, Self-Care Instructions: Knee Pain (ED), R.I.C.E. Treatment (ED) Prescriptions: No Action doxycycline hyclate 100 mg capsule 100 mg PO BID 14 Days Qty: 28 0RF Referrals: [facility] [place]] [facility] [Provider Group] [facility] [Provider Group] Stand Alone Forms: Work/School Release Interventions: ED Discharge Assessment Last Done: 11/15/23 19:25 Discharge Date/Time: 11/15/23 19:26 Print Language: Bulgarian
--- OUTSIDE RECORDS SUMMARY | 2023-11-15 17:52 | XMS_ITS | Continuity of Care Document ---
Author Organization [facility] Address [address] [place] [id number] Care Team Providers Care Lead Loader Name Role Phone Sara Mercado MD Primary Care Physician Encounter [facility] [place] Date(s): 05/26/23 - 08/22/23 [facility] [address] [place] [id number] Attending Physician: Sudhakar Krause MD Admitting [...] capsule, 1 Refills, Maintenance, 10/21/22 12:34:00 EDT, [facility]/pharmacy #[id number], Partial fill upon patien... Start Date: 10/21/22 Stop Date: 12/20/22 Status: Ordered Diltiazem 0 Refills, Maintenance, 07/16/23 15:34:00 EST, Partial fill upon patient request if the prescription is for a schedule II opioid drug. Start Date: 07/16/23 Status: Ordered Eliquis 2.5 mg oral tablet 1 tablet = 2.5 mg, By Mouth, 2 times a day, 0 Refills, Maintenance, 07/16/23 15:33:00 EST, Partial fill upon patient request if the prescription is for a schedule II opioid drug. Start Date: 07/16/23 Status: Ordered Fluoxetine By Mouth, 0 Refills, Maintenance, 07/16/23 15:34:00 EST, Partial fill upon patient request if the prescription is for a schedule II opioid drug. Start Date: 07/16/23 Status: Ordered gabapentin 300 mg oral capsule 3 CAPSULES, By Mouth, 3 times a day, # 270 capsule, Refills 0, Maintenance, 08/15/21 1:41:00 EST, Partial fill upon patient request if the prescription is for a schedule II opioid drug. Start Date: 08/15/21 Status: Ordered metoprolol 25 mg oral tablet 25 mg, 1, tablet, By Mouth, 2 times a day, Refills 0, Maintenance, 07/16/23 15:34:00 EST, Partial fill upon patient request if the prescription is for a schedule II opioid drug. Start Date: 07/16/23 Status: Ordered pantoprazole 20 mg oral delayed release tablet 1 tablet = 20 mg, By Mouth, Daily, # 30 tablet, 0 Refills, Maintenance, 09/23/22 14:19:00 EDT, CR Tablet Start Date: 09/23/22 Status: Ordered Questran 4 gm/9 gm oral powder for reconstitution 1 pack/packet, By Mouth, 3 times a day, # 90 each, 2 Refills, Maintenance, 10/21/22 12:34:00 EDT, REC Powder, [facility]/pharmacy #[id number], Partial fill upon patient request if [...] opioid drug. Start Date: 09/23/22 Status: Ordered Senna 8.6 mg oral tablet [...] Reference Physician Member Role: PCP Address: Address: [address] [place] [address]- Care Team Related Persons Name: DENA WILSON Address: [place] [address] Name: DEV NEVAREZ Address: [place] [address]
[2023-11-15 19:08] VITALS: BP 144/88; PULSE 78; RESP 20; TEMP 36.6; O2SAT 97
--- NOTE | 2023-11-15 19:24 | PC.NURSE ---
this nurse did not see the patient in emc, the patient was seen and discharged by the provider
[2023-11-15 19:25] VITALS: BP 144/88; PULSE 78; RESP 20; TEMP 36.6; O2SAT 97
== END 2023-11-15 19:26 | disposition home or self-care (01) ==
PROVIDERS: Emergency Provider Emergency Medicine
DX: M25.562 Pain in left knee (principal); M79.662 Pain in left lower leg
CPT/HCPCS: 93971; 99282; 99284

== ENCOUNTER 2024-09-05 20:05 | Emergency (ER) | payer OTHER, SELFPAY ==
--- NOTE | ~2024-09-05 | XR_ITS ---
CLINICAL HISTORY: fall 2 view right forearm Comparison: None Findings: No fractures or dislocations. No joint effusion. No significant arthritic change. No radiopaque foreign body. IMPRESSION: 1. Normal right forearm This document has been electronically signed by: Raj Espinosa MD on 09/05/2024 21:17:13
--- NOTE | ~2024-09-05 | XR_ITS ---
CLINICAL HISTORY: RIght shoulder pain fall 3 view right shoulder Comparison: None Findings: Cervical spinal fusion hardware. No acute fracture or malalignment. Subchondral cystic changes along the lateral humeral head. Mild degenerative changes of the AC joint. No erosions. No radiopaque foreign body. IMPRESSION: 1. No acute findings This document has been electronically signed by: Raj Espinosa MD on 09/05/2024 21:15:55
--- NOTE | ~2024-09-05 | XR_ITS ---
CLINICAL HISTORY: Fall 3 view right elbow Comparison: None Findings: No acute fractures or dislocations. No significant arthritic change or erosions. No joint effusion. No radiopaque foreign body. Mild posterior elbow soft tissue swelling. IMPRESSION: 1. No acute fracture This document has been electronically signed by: Raj Espinosa MD on 09/05/2024 21:17:57
--- NOTE | ~2024-09-05 | XR_ITS ---
CLINICAL HISTORY: Fall 4 view right wrist and hand Comparison: None Findings: Bones intact. No dislocations. No significant arthritic change. No erosions. No radiopaque foreign body. Mildly diffuse soft tissue swelling. IMPRESSION: 1. No acute fracture This document has been electronically signed by: Raj Espinosa MD on 09/05/2024 21:24:33
[2024-09-05 20:13] VITALS: BP 122/59; PULSE 85; RESP 16; TEMP 36.6; O2SAT 97; BMI 29.8
--- NOTE | 2024-09-05 20:18 | ED.GENADULT ---
HPI - General Adult General Chief complaint: Extremity Injury, Upper Stated complaint: rt arm hard to move, then fell on it on ice Time Seen by Provider: 09/05/24 23:05 Source: patient Mode of arrival: ambulatory Limitations: no limitations History of Present Illness ED Provider: Dr. Purvi Johnson HPI narrative: Patient comes to the emergency room complaining of right shoulder pain that started over 2 months ago. Patient denies any initial injuries when he started having right shoulder pain. However, 2 weeks ago, patient was about to fall, he grabbed a side rail in believes he pulled something. Since then, patient states that his range of motion has gotten much worse, patient can barely abduct his right arm. Patient denies any other injuries. Patient states that he has Parkinson's and is prone to falling but other than the above-mentioned, he has not had any injuries. patient denies any numbness or tingling in the right arm. Denies any neck pain. Related Data Previous Rx's ?Medication ?Instructions ?Recorded doxycycline hyclate 100 mg capsule 100 mg PO BID cough 14 days #28 07/14/23 caps tramadol 50 mg tablet 50 mg PO BID PRN pain #7 tabs 09/05/24 Allergies Allergy/AdvReac Type Severity Reaction Status Date / Time No Known Allergies Allergy Verified 09/05/24 20:14 [No Known Allergies*] Review of Systems Review of Systems: Constitutional : No Weight loss, No Fever, No Chills, No Night Sweats, No Fatigue, No Malaise ENT/Mouth : No Hearing loss, No Ear Pain, No Nasal Congestion, No Sinus Pain, No Hoarseness, No sore throat, No Rhinorrhea, No Swallowing Difficulty Eyes: No Eye Pain, No Swelling, No Redness, No Foreign Body, No Discharge, No Vision Changes Cardiovascular : No Chest Pain, No SOB, No Dyspnea on Exertion, No Orthopnea, No Edema, No Palpitations Respiratory : No Cough, No Sputum, No Wheezing, No Smoke Exposure, No Dyspnea Gastrointestinal : No Nausea, No Vomiting, No Diarrhea, No Constipation, No abdominal Pain, No Hematochezia, No Melena Genitourinary : no irregular bleeding, No Dysuria, No Urinary Frequency, No Hematuria, No Urinary Incontinence, No Urgency, No Flank Pain, No Urinary Flow Changes, No Hesitancy Musculoskeletal : Complaining of right shoulder pain, No Myalgias, No Joint Swelling Skin : No Skin Lesions, No rash Neuro : No Weakness, No Numbness, No Paresthesias, No Loss of Consciousness, No Dizziness, No Headache Psych : No Anxiety/Panic, No Depression, No SI/HI/AH/VH, No Social Issues, Heme/Lymph: No Bruising, No Bleeding,No Lymphadenopathy Endocrine : No Polyuria, No Polydipsia, No Temperature Intolerance [facility] Social History Social History Smoked in Last 30 Days: No Use of substances other than those prescribed or required for medical reasons: No Advance Directives: No Advance Directives Information Provided: Yes Do you have a plan to hurt others: No Plan Physical Exam ED Vital Signs: Vital Signs - 24 hr 09/05/24 23:38 09/05/24 23:38 Temperature 97.9 F 97.9 F Pulse Rate 76 76 Respiratory Rate 17 17 Blood Pressure 105/61 105/61 Pulse Oximetry 97 97 Oxygen Delivery Method Room Air Room Air BMI result Body Mass Index 29.8 Const Other: Appearance: Alert. Oriented X3. No acute distress. Eyes: Pupils equal, round and reactive to light. ENT: Pharynx normal. Neck: Normal inspection. Neck supple. No lymph nodes noted. No crepitus CVS: Normal heart rate and rhythm. Pulses normal. Normal S1 and S2 Respiratory: No respiratory distress. Breath sounds normal. No Wheezing. No rales Abdomen: Soft and nontender. No rigidity. No distention. Skin: Skin warm and dry. Normal skin color. Normal skin turgor. Extremities: No lower extremity edema. No Lacerations. No Rash. On the right arm, patient can barely abduct past 10 degrees passively, actively up to 30 degrees before he starts complaining of severe pain. Neuro: Oriented X 3. No motor deficit. No sensory deficit. Moving all extremities. No slurred speech. CN 2 through 12 grossly intact Psych: calm, cooperative, normal affect Course Course Course Narrative: RME: 53 yold male presents to the ED for [place] pain/right arm pain since falling 2 weeks ago. Patient states slipped on ice and fell onto right upper extremity has had pain ever since. Patient denies any head or loss of consciousness. Pain on range of motion of right shoulder. Patient is sent for imaging Medical Decision Making Medical Decision Making MDM Narrative: X-rays of the hand forearm elbow and shoulder do not show any acute abnormality I discussed with the patient that given the mechanism of injury, he probably has a rotator cuff injury. Patient will likely need an MRI and/or physical therapy patient was provided with a sling patient agrees with plan, he will follow-up with his PCP and Orthopedics. Differential Diagnosis Differential Diagnoses: The differential diagnosis associated with the presentation includes ( Rotator cuff injury, calcific tendinitis, bursitis, fracture, dislocation) Discharge Plan Discharge Clinical Impression: Injury of right rotator cuff Patient Disposition: Home, Self-Care Instructions: Rotator Cuff Injury (ED), Rotator Cuff Injury Exercises (DC) Additional Instructions: Please follow-up with your primary care physician tomorrow. If you have any worsening or new symptoms, please return to the emergency room or call 911 Prescriptions: New tramadol 50 mg tablet 50 mg PO BID PRN (Reason: pain) Qty: 7 0RF No Action doxycycline hyclate 100 mg capsule 100 mg PO BID 14 Days Qty: 28 0RF Interventions: ED Discharge Assessment Last Done: 09/05/24 23:38 Discharge Date/Time: 09/05/24 23:40 Print Language: Comoran
[2024-09-05 23:38] VITALS: BP 105/61; PULSE 76; RESP 17; TEMP 36.6; O2SAT 97
== END 2024-09-05 23:40 | disposition home or self-care (01) ==
PROVIDERS: Emergency Provider Emergency Medicine
DX: S46.001A Unspecified injury of muscle(s) and tendon(s) of the rotator cuff of right shoulder, initial encounter (principal); M79.601 Pain in right arm; W00.0XXA Fall on same level due to ice and snow, initial encounter; Y93.01 Activity, walking, marching and hiking; Y92.9 Unspecified place or not applicable; Y99.8 Other external cause status
CPT/HCPCS: 73030; 73080; 73090; 73110; 73130; 99283; 99284

== ENCOUNTER → 2024-09-05 20:16 | Outpatient (BNV) | payer OTHER, SELFPAY | PROVIDERS: Visit Provider Radiology Diagnostic Radiology | DX: M25.511 Pain in right shoulder (principal); M25.69 Stiffness of other specified joint, not elsewhere classified | CPT/HCPCS: 73030; 73080; 73090; 73110; 73130 ==